=== PATIENT | female | born 1960 | race Caucasian/White ===

== ENCOUNTER 2017-08-19 07:56 | Outpatient (CLI) | payer BC | END 2017-08-19 07:57 | disposition home or self-care (01) | LOC: BICMAMMO 07:56 | PROVIDERS: ATTEND Family Medicine | DX: Z12.31 Encounter for screening mammogram for malignant neoplasm of breast (principal); Z80.3 Family history of malignant neoplasm of breast | CPT/HCPCS: 77063; 77067 ==

== ENCOUNTER 2018-06-02 10:06 | Outpatient (CLI) | payer BC ==
--- NOTE | 2018-06-02 11:52 | RAD ---
RIGHT FOOT THREE VIEWS: INDICATIONS: History of dropping a jelly jar on the foot one month ago with continued pain in the 2nd and 3rd digi ts. FINDINGS: No definite displaced fracture is evident involving the 2nd and 3rd digits. Lisfranc alignment is pr eserved. Enthesopathic change is seen of the calcaneus. IMPRESSION: No acute osseous abnormality. POS: [facility]
== END 2018-06-02 10:07 | disposition home or self-care (01) ==
LOC: SCSRAD 10:06
PROVIDERS: ATTEND Family Medicine
DX: M79.671 Pain in right foot (principal)

== ENCOUNTER 2019-05-01 13:36 | Outpatient (CLI) | payer BC ==
--- NOTE | 2019-05-01 15:44 | ULT ---
LEFT BREAST ULTRASOUND: Date: 05/01/2019 COMPARISON: Mammogram dated 05/01/2019. HISTORY: Two palpable masses in left breast. TECHNIQUE: Multiplanar Casas scale and color Doppler images were obtained in a left breast ultrasound. FINDINGS: Targeted ultrasound at the areas of palpable abnormality at the 12 o'clock and 1 o'clock positions sh owed normal appearing breast parenchyma. No suspicious mass or shadowing is seen. IMPRESSION: BI-RADS Category 1 - Negative. Annual screening mammography is recommended. POS: [facility]
--- NOTE | 2019-05-02 14:40 | MMO ---
Bilateral MAMMO Bilat Diag [facility]. CLINICAL HISTORY: Patient is 58 years old and is seen for diagnostic exam. The patient has no personal history of cancer. VIEWS: The views performed were: bilateral craniocaudal with tomosynthesis; bilateral mediolateral oblique with tomosynthesis; and bilateral mediolateral with tomosynthesis. FILMS COMPARED: The present examination has been compared to prior imaging studies performed at [facility] on 11/08/2014, 12/02/2015, 08/19/2017 and 05/01/2019. This study has been interpreted with the assistance of computer-aided detection. MAMMOGRAM FINDINGS: The breasts are almost entirely fat. There are no suspicious masses, suspicious calcifications, or new areas of architectural distortion. IMPRESSION: THERE IS NO MAMMOGRAPHIC EVIDENCE OF MALIGNANCY. A ROUTINE FOLLOW-UP MAMMOGRAM IN 1 YEAR IS RECOMMENDED. THE RESULTS OF THIS EXAM WERE SENT TO THE PATIENT. ACR BI-RADS Category 1 - Negative MAMMOGRAPHY NOTE: 1. A negative mammogram report should not delay a biopsy if a dominant of clinically suspicious mass is present. 2. Approximately 10% to 15% of breast cancers are not detected by mammography. 3. Adenosis and dense breasts may obscure an underlying neoplasm. Reported by: CHIRAG BRADEN MD Electonically Signed: [id number]
== END 2019-05-01 13:37 | disposition home or self-care (01) ==
LOC: BICMAMMO 13:36
PROVIDERS: ATTEND Family Medicine
DX: N63.20 Unspecified lump in the left breast, unspecified quadrant (principal)
CPT/HCPCS: 77066; G0279

== ENCOUNTER 2021-07-08 08:56 | Outpatient (CLI) | payer OTHER | END 2021-07-08 08:57 | disposition home or self-care (01) | LOC: BICCT 08:56 | PROVIDERS: ATTEND Family Medicine | DX: I99.8 Other disorder of circulatory system (principal) | CPT/HCPCS: 75571 ==

== ENCOUNTER 2024-05-08 11:33 | Emergency (ER) | payer BC ==
[2024-05-08] MEDS ORDERED: Acetaminophen 325 MG TAB ONE (12:26)
[2024-05-08] MEDS ORDERED: Acetaminophen/Codeine 30-300mg Tablet ONE (12:27)
== END 2024-05-08 13:03 | disposition home or self-care (01) ==
LOC: ERS 11:33
DX: S42.292A Other displaced fracture of upper end of left humerus, initial encounter for closed fracture (principal); S42.212A Unspecified displaced fracture of surgical neck of left humerus, initial encounter for closed fracture; E78.5 Hyperlipidemia, unspecified; J44.9 Chronic obstructive pulmonary disease, unspecified; M81.0 Age-related osteoporosis without current pathological fracture; W01.10XA Fall on same level from slipping, tripping and stumbling with subsequent striking against unspecified object, initial encounter; Y93.89 Activity, other specified; Y92.003 Bedroom of unspecified non-institutional (private) residence as the place of occurrence of the external cause; Z87.891 Personal history of nicotine dependence
CPT/HCPCS: 99283

== ENCOUNTER 2025-01-11 10:07 | Outpatient (CLI) | payer BC | END 2025-01-11 10:08 | disposition home or self-care (01) | LOC: BICCT 10:07 | PROVIDERS: ATTEND Student in an Organized Health Care Education/Training Program | DX: T84.84XA Pain due to internal orthopedic prosthetic devices, implants and grafts, initial encounter (principal); Z96.612 Presence of left artificial shoulder joint ==